=== PATIENT | female | born 1965 | race Caucasian/White ===

== ENCOUNTER 2024-04-19 11:55 | Outpatient (RCR) | payer OTHER, SELFPAY ==
[2024-04-19 12:37] LABS: Creatinine* 0.8 mg/dL (0.5-1.5); Est. Creatinine Clearance* 64.58; Estimated Glomerular Filt Rate 84.0 ml/min
--- NOTE | 2024-05-06 09:54 | ONC.NURNOTE ---
Dx: Lung cancer
== END 2024-10-16 23:59 | disposition home or self-care (01) ==
LOC: CCIC 11:55
PROVIDERS: Radiology Radiation Oncology; Visit Provider Clinical Nurse Specialist
DX: C34.90 Malignant neoplasm of unspecified part of unspecified bronchus or lung (principal)
CPT/HCPCS: 36415; 82565; 99211